=== PATIENT | male | born 1995 ===

== ENCOUNTER 2022-05-06 23:11 | Emergency (ER) | payer SELFPAY ==
[2022-05-07] MEDS ORDERED: Ketorolac Tromethamine 30 MG/ML VIAL ONE (00:37)
== END 2022-05-07 02:00 | disposition home or self-care (01) ==
LOC: ERS 23:11
DX: J02.9 Acute pharyngitis, unspecified (principal); T78.40XA Allergy, unspecified, initial encounter
CPT/HCPCS: 87081; 87430; 96372; 99283; J1885